=== PATIENT | male | born 1985 | race African-American/Black ===

== ENCOUNTER 2024-06-16 15:54 | Emergency (ER) | payer SELFPAY ==
[~2024-06-16] VITALS: Ht 177.8 cm; Wt 72.7 kg
[2024-06-16 17:09] VITALS: TEMP 98.5
[2024-06-16] MEDS: LIDOCAINE 1% 10 ML VIAL ID ONE (18:11)
[2024-06-16] MEDS: IBUPROFEN 600 MG TABLET PO ONE (18:11)
[2024-06-16] MEDS: PERTUSS(ACELL),DIPH,TET/PF 0.5 ML SYRINGE [ADULT] IM. ONE (18:12)
[2024-06-16 19:15] VITALS: BP 140/91; PULSE 92; RESP 16; O2SAT 98
== END 2024-06-16 19:19 | disposition home or self-care (01) ==
LOC: EMS 15:54
DX: S01.112A Laceration without foreign body of left eyelid and periocular area, initial encounter (principal); X58.XXXA Exposure to other specified factors, initial encounter; Y93.89 Activity, other specified; Y92.89 Other specified places as the place of occurrence of the external cause; Y99.8 Other external cause status
CPT/HCPCS: 99285; 70450; 90715; 90471; J3490